=== PATIENT | male | born 1945 | race Caucasian/White ===

== ENCOUNTER 2023-06-09 18:18 | Emergency (ER) | payer MEDICAID ==
[~2023-06-09] VITALS: Ht 172.7 cm; Wt 60.0 kg
[2023-06-09 19:15] VITALS: BP 120/76; O2SAT 97
[2023-06-09 20:51] LABS: HEMATOCRIT. 46.2 % (42.0-52.0); HEMOGLOBIN. 15.6 g/dL (14.0-18.0); MEAN CORPUSCULAR HEMOGLOBIN 32.3 pg (28.0-32.0); MEAN CORPUSCULAR HGB CONC 33.8 g/dL (31.0-37.0); MEAN CORPUSCULAR VOLUME 95.6 fL (80.0-94.0); MEAN PLATELET VOLUME 8.3 fl (7.4-10.4); PLATELET 150 x1000/uL (130-400); RED BLOOD CELL COUNT 4.83 mill/uL (4.7-6.1); RED CELL DISTRIBUTION WIDTH 14.9 % (11.6-14.6); WHITE BLOOD COUNT 7.3 x1000/uL (4.5-11.0)
[2023-06-09 20:59] LABS: CHLORIDE 106 mEq/L (98-107); DIFFERENTIAL COMMENT 1; INDEX HEMOLYSI 1 (1-3); INDEX ICTERIC 1 (1-4); INDEX LIPEMIC 1 (1-3); POTASSIUM 4.3 mEq/L (3.5-5.1); SODIUM 136 mEq/L (136-145)
[2023-06-09 21:00] LABS: PROTHROMBIN TIME 11.1 sec (9.6-11.0)
[2023-06-09 21:10] LABS: ALANINE AMINOTRANSFERASE 26 IU/L (13-61); ALBUMIN 3.4 g/dL (3.4-5.0); ASPARTATE AMINOTRANSFERASE 25 IU/L (15-37); BILIRUBIN TOTAL 0.9 mg/dL (0.1-1.0); CALCIUM 8.5 mg/dL (8.5-10.1); CARBON DIOXIDE 29 mEq/L (21-32); CREATININE 0.7 mg/dL (0.6-1.3); GLUCOSE 98 mg/dL (70-105); NT PRO B-TYPE NATRIURETIC PEP 18 pg/mL (5-125); PROTEIN TOTAL 7.4 g/dL (6.0-8.3); TROPONIN I HIGH SENSITIVITY 6 ng/L (<78); UREA NITROGEN BLOOD 12 mg/dL (7-21)
[2023-06-09 21:49] LABS: PLATELET ESTIMATE NORMAL
[2023-06-09 21:50] LABS: ANISOCYTOSIS 1+
[2023-06-10] MEDS ORDERED: GUAI600T26 MT (01:01)
[2023-06-10 01:18] LABS: CLARITY URINE CLEAR (CLEAR); COLOR URINE YELLOW (YELLOW); GLUCOSE URINE NEGATIVE (NEGATIVE); KETONES URINE NEGATIVE (NEGATIVE); LEUKOCYTE ESTERASE URINE NEGATIVE (NEGATIVE); NITRITE URINE NEGATIVE (NEGATIVE); OCCULT BLOOD URINE TRACE (NEGATIVE); PROTEIN URINE NEGATIVE (NEGATIVE); SPECIFIC GRAVITY URINE 1.017 (1.005-1.030); UROBILINOGEN URINE 0.2 E.U./dL (0.2-1.0)
[2023-06-10 01:21] VITALS: PULSE 64; RESP 18; TEMP 98.1
[2023-06-10 01:21] LABS: BACTERIA URINE NONE SEEN; SQUAMOUS EPITHELIAL CELL URINE NONE SEEN /lpf (RARE/1+); YEAST URINE NONE SEEN
[2023-06-10 04:46] LABS: WBC URINE 0-2 /hpf (0-2)
== END 2023-06-10 01:29 | disposition home or self-care (01) ==
LOC: ER 21:21
DX: B34.9 Viral infection, unspecified (principal); R07.9 Chest pain, unspecified; Z98.890 Other specified postprocedural states
CPT/HCPCS: 36415; 71045; 80053; 81003; 83880; 84484; 85025; 93005; 99285

== ENCOUNTER 2023-06-28 19:30 | Emergency (ER) | payer MEDICAID ==
[~2023-06-28] VITALS: Ht 170.2 cm; Wt 72.0 kg
[~2023-06-28 19:30] MED LIST: GUAI600T26 MT
[2023-06-28 19:51] VITALS: BP 116/68; PULSE 69; RESP 16; TEMP 98.5; O2SAT 98
[2023-06-28] MEDS ORDERED: TOPUD MT (21:13)
== END 2023-06-29 00:33 | disposition home or self-care (01) ==
LOC: ER 19:30
DX: S82.832A Other fracture of upper and lower end of left fibula, initial encounter for closed fracture (principal); X58.XXXA Exposure to other specified factors, initial encounter; Y93.89 Activity, other specified; Y92.89 Other specified places as the place of occurrence of the external cause; Y99.8 Other external cause status
CPT/HCPCS: 73610; 73630; 29515; 99284; Z7610